=== PATIENT | male | born 2000 | race Caucasian/White ===

== ENCOUNTER 2025-06-07 13:15 | Emergency (ER) | payer BC ==
[~2025-06-07] VITALS: Ht 185.4 cm; Wt 95.5 kg
[2025-06-07 13:17] VITALS: BP 135/84; PULSE 74; RESP 18; TEMP 97.8; O2SAT 99
[2025-06-07] MEDS: IBUPROFEN 600 MG TABLET PO ONE (15:48)
[2025-06-07] MEDS: ACETAMINOPHEN 500 MG TABLET PO ONE (15:48)
[2025-06-07] MEDS ORDERED: ACET-66 PO (17:12)
[2025-06-07] MEDS ORDERED: IBUP-1554 PO (17:12)
[2025-06-07] MEDS ORDERED: METH-659 PO (17:12)
== END 2025-06-07 17:22 | disposition home or self-care (01) ==
LOC: EMS 13:19
DX: S39.012A Strain of muscle, fascia and tendon of lower back, initial encounter (principal); M53.3 Sacrococcygeal disorders, not elsewhere classified; X58.XXXA Exposure to other specified factors, initial encounter; Y93.89 Activity, other specified; Y92.89 Other specified places as the place of occurrence of the external cause; Y99.8 Other external cause status
CPT/HCPCS: 72110; 99284; Z7502; Z7610